=== PATIENT | female | born 1950 | race Caucasian/White ===

== ENCOUNTER → 2016-11-24 | Outpatient (CLI) | payer OTHER ==
[~2016-11-24] MED LIST: ACET-1138 PO; ANT125 PO; ASPEC81 PO; CALC500C70 PO; CLB200 PO; CLON1TAB3 PO; OPTIRAY 320 IV PRN; OXYSR10 PO; PARO1TAB29 PO; RXC5 PO; SIMV40TA2 PO; [UNRECOGNIZED DRUG - CODE] PO
[2016-11-24 16:15] LABS: ISTAT CREATININE 0.9 mg/dl (0.6-1.3); ISTAT IONIZED CALCIUM 1.26 mmol/l (1.12-1.32)
--- NOTE | 2016-11-24 16:20 | DIAGNOSTIC IMAGING REPORT ---
CT ABD/PELVIS IV AND ORAL CONT CLINICAL HISTORY: Right lower quadrant abdominal pain. Weight loss. COMPARISON STUDY: None. TECHNIQUE: Following the IV administration of 94 mL of Optiray-320, CT scan of the abdomen and pelvis was performed from the lung bases to the proximal femurs. Images are reviewed in the axial, sagittal, and coronal planes. IV contrast was administered without complication. CT DOSE: 988.58 mGycm FINDINGS: Lower chest: The heart is normal in size and configuration, without pericardial effusion. The lung bases and pleural spaces are clear. Liver: There is hepatic steatosis. No focal masses are visualized. The portal vein appears patent. Gallbladder: Surgically absent. Spleen: Normal in size and attenuation. Pancreas: Unremarkable. Adrenal glands: Unremarkable. Kidneys: There is symmetric renal cortical enhancement. The kidneys are normal in size without hydronephrosis. Bowel: There are no transition zones indicate bowel obstruction. By history the appendix is surgically absent. There is colonic diverticulosis. There is no acute peridiverticular inflammatory change. Peritoneum: There is no intraperitoneal free air or abdominal ascites. Vasculature: The abdominal aorta is normal in course and caliber. Adenopathy: Right common femoral lymph nodes are the upper limits of normal in size. Pelvic viscera: The bladder, and pelvic viscera are unremarkable. Skeletal structures: No destructive osseous lesions are seen. IMPRESSION: 1. No acute intra-abdominal findings 2. No evidence of bowel obstruction. No evidence of free air 3. Hepatic steatosis 4. Diverticulosis. No evidence of acute peridiverticular inflammatory change 5. Right common femoral lymph nodes at the upper limits of normal in size. Electronically signed by: Jonas Liu M.D. 11/24/2016 4:19 PM Dictated Date/Time: 11/24/2016 4:15 PM
== END | disposition home or self-care (01) ==
LOC: C.CTS 12:53
PROVIDERS: ATTEND Nurse Practitioner
DX: R10.813 Right lower quadrant abdominal tenderness (principal); K76.0 Fatty (change of) liver, not elsewhere classified; K57.90 Diverticulosis of intestine, part unspecified, without perforation or abscess without bleeding; R53.83 Other fatigue; R73.9 Hyperglycemia, unspecified; E03.9 Hypothyroidism, unspecified

== ENCOUNTER → 2016-11-24 | Outpatient (CLI) | payer OTHER ==
[~2016-11-24] MED LIST changes: -OPTIRAY 320 IV PRN
[2016-11-24 17:26] LABS: URINE APPEARANCE CLEAR (CLEAR); URINE BILIRUBIN NEG (NEG); URINE COLOR YELLOW; URINE NITRITE NEG (NEG); URINE SPECIFIC GRAVITY 1.016 (1.000-1.030); UROBILINOGEN NEG (NEG); ZZUR CULT IF INDIC CLEAN CATCH NO
[2016-11-24 17:31] LABS: MANUAL MICROSCOPIC REQUIRED? NO; REVIEW REQ? NO
[2016-11-24 17:36] LABS: BASO % 0.3 %; BASO ABS # 0.02 K/uL (0-0.2); COMPLETE YES; EOS % 2.4 %; HEMATOCRIT 45.6 % (37-47); IG% 0.2 %; LYMPH % 43.9 %; LYMPH ABS # 2.53 K/uL (1.2-3.4); MEAN CELL VOLUME 90.5 fL (80-100); MEAN CORPUSCULAR HEMOGLOBIN 30.6 pg (25-34); MEAN CORPUSCULAR HGB CONC 33.8 g/dl (32-36); MONO % 7.6 %; NEUT % 45.6 %; PLATELET COUNT 217 K/uL (130-400); RED BLOOD COUNT 5.04 M/uL (4.2-5.4); WHITE BLOOD COUNT 5.76 K/uL (4.8-10.8)
[2016-11-24 18:01] LABS: ALB/GLOB RATIO 1.2 (0.9-2); ALKALINE PHOSPHATASE 67 U/L (45-117); ALT/SGPT 27 U/L (12-78); AST/SGOT 19 U/L (15-37); BLOOD UREA NITROGEN 10 mg/dl (7-18); BUN/CREATININE RATIO 11.5 (10-20); CALCIUM 9.2 mg/dl (8.5-10.1); CARBON DIOXIDE 21 mmol/L (21-32); CHLORIDE 111 mmol/L (98-107); CREATININE 0.91 mg/dl (0.60-1.20); GLUCOSE 88 mg/dl (70-99); POTASSIUM 3.8 mmol/L (3.5-5.1); SODIUM 143 mmol/L (136-145)
[2016-11-25 05:42] LABS: ESTIMATED AVERAGE GLUCOSE 111 mg/dl; HA1C FLAG Normal (Normal)
== END | disposition home or self-care (01) ==
LOC: C.LABBFT 12:01
PROVIDERS: ATTEND Nurse Practitioner
DX: R53.83 Other fatigue (principal); R73.9 Hyperglycemia, unspecified; E03.9 Hypothyroidism, unspecified

== ENCOUNTER → 2016-12-02 | Outpatient (CLI) | payer OTHER ==
--- NOTE | 2016-12-02 09:30 | DIAGNOSTIC IMAGING REPORT ---
CT LUNG SCREENING, LOW DOSE WITH COMPUTER-AIDED DETECTION (CAD) CLINICAL HISTORY: LOW DOSE LUNG SCREENING PERSONAL HX TOBACCO USE COMPARISON STUDY: Abdominal CT dated 11/24/2016. Chest x-ray dated 08/26/2015. CT DOSE: 79.39 mGycm TECHNIQUE: Low-dose helical CT was acquired without intravenous contrast from lung apices to bases and reconstructed at 2.5 mm every 2 mm. CAD was utilized for this study. FINDINGS: Thyroid: Imaged portions of the thyroid gland are normal in appearance. Thoracic aorta: There is mild atherosclerotic calcification of the thoracic aorta, which is normal in caliber and demonstrates standard 3 vessel arch anatomy. Heart: The heart is normal in size and configuration, without pericardial effusion. There is moderate atherosclerotic calcification of the coronary arteries. The pulmonary trunk is normal in caliber. Lungs and pleural spaces: There is mild emphysematous change. No airspace consolidation or pleural effusion is identified. The trachea and central airways are clear. Scattered calcified granulomas are observed. There is a 3 mm pleural-based nodule in the right lower lobe seen on image #135. Mediastinum: There is no mediastinal lymphadenopathy. Adelina: Not well assessed without IV contrast. Axilla: Clear. Upper abdomen: Cholecystectomy clips are noted. There is cortical atrophy of the partially imaged kidneys. Skeletal structures: The skeletal structures are osteopenic. Arthritic change is noted in the shoulders and thoracic spine. There are no lytic or blastic osseous lesions. IMPRESSION: 1. Mild emphysema. 2. No airspace consolidation or pleural effusion is identified. 3. There is a 3 mm low suspicion pleural-based nodule in the right lower lobe. No additional pulmonary nodule is identified. See below. CAD FINDINGS: Overall Lung RADS Category: 2 Lung RADS Management Recommendation: Lung-RADS 2: Continue annual screening in 12 months. Lung RADS Follow Up Date: 2017-12-02 Lung RADS Nodule ID: 1 Nodule 1 Category: 2 Nodule 1 Status: Baseline Nodule 1 Description: Solid Nodule 1 Lesion ID: 1 Nodule 1 Slice Number: 96 Nodule 1 Volume (mm3): 29 Nodule 1 Major [place] mm: 4.9 Nodule 1 Minor [place] mm: 3.2 Electronically signed by: Nathan Garces M.D. 12/02/2016 9:29 AM Dictated Date/Time: 12/02/2016 9:22 AM
== END | disposition home or self-care (01) ==
LOC: C.CTS 08:44
PROVIDERS: ATTEND Nurse Practitioner
DX: R73.9 Hyperglycemia, unspecified (principal); E03.9 Hypothyroidism, unspecified; R53.83 Other fatigue; Z87.891 Personal history of nicotine dependence; R91.8 Other nonspecific abnormal finding of lung field

== ENCOUNTER → 2016-12-28 | Outpatient (CLI) | payer OTHER ==
--- NOTE | 2016-12-28 10:00 | DIAGNOSTIC IMAGING REPORT ---
LEFT ANKLE 3 VIEWS CLINICAL HISTORY: Left ankle pain. No history of trauma. FINDINGS: 3 views of the left ankle are obtained. No prior studies are available for comparison at the time of dictation. The skeletal structures are osteopenic. No fracture is seen. The ankle mortise is intact. There is a large plantar calcaneal enthesophyte. No ankle joint effusion is seen. There is nonspecific edema within Kager's fat pad with apparent thickening of the Achilles tendon. Mild degenerative spurring is seen along the dorsal aspect of the tarsal bones. Mild soft tissue sinus present around ankle. IMPRESSION: 1. Osteopenia with no acute bony abnormality seen in the left ankle. 2. There is nonspecific edema within Kager's fat pad as well as apparent thickening of the Achilles tendon. Correlate clinically for evidence of Achilles tendinopathy/paratenonitis. Electronically signed by: Nathan Garces M.D. 12/28/2016 9:58 AM Dictated Date/Time: 12/28/2016 9:56 AM
== END | disposition home or self-care (01) ==
LOC: C.RAD 09:35
PROVIDERS: ATTEND Nurse Practitioner
DX: M25.572 Pain in left ankle and joints of left foot (principal)

== ENCOUNTER → 2017-03-08 | Outpatient (CLI) | payer OTHER ==
[2017-03-08 18:03] LABS: ALB/GLOB RATIO 1.4 (0.9-2); ALKALINE PHOSPHATASE 63 U/L (45-117); ALT/SGPT 28 U/L (12-78); AST/SGOT 16 U/L (15-37); BLOOD UREA NITROGEN 19 mg/dl (7-18); BUN/CREATININE RATIO 19.5 (10-20); CALCIUM 8.8 mg/dl (8.5-10.1); CARBON DIOXIDE 25 mmol/L (21-32); CHLORIDE 109 mmol/L (98-107); CREATININE 0.98 mg/dl (0.60-1.20); GLUCOSE 87 mg/dl (70-99); POTASSIUM 3.7 mmol/L (3.5-5.1); SODIUM 142 mmol/L (136-145)
== END | disposition home or self-care (01) ==
LOC: C.LABBFT 10:54
PROVIDERS: ATTEND Nurse Practitioner
DX: E03.9 Hypothyroidism, unspecified (principal); I10 Essential (primary) hypertension

== ENCOUNTER → 2017-03-31 | Outpatient (CLI) | payer OTHER ==
--- NOTE | 2017-03-31 09:36 | DIAGNOSTIC IMAGING REPORT ---
RIGHT ANKLE MIN 3 VIEWS ROUTINE CLINICAL HISTORY: Right ankle pain status post trauma COMPARISON: None. DISCUSSION: No acute fractures or dislocations are visualized. There is small calcification within the plantar fascia. Degenerative changes are present within the midfoot. IMPRESSION: No fractures or dislocations identified. Electronically signed by: Jonas Liu M.D. 03/31/2017 9:34 AM Dictated Date/Time: 03/31/2017 9:34 AM
== END | disposition home or self-care (01) ==
LOC: C.RAD1850 03-30 16:17
PROVIDERS: ATTEND Nurse Practitioner
DX: S99.911A Unspecified injury of right ankle, initial encounter (principal); W19.XXXA Unspecified fall, initial encounter

== ENCOUNTER → 2017-06-27 | Outpatient (CLI) | payer OTHER ==
[2017-06-27 12:10] LABS: BASO % 0.5 %; BASO ABS # 0.03 K/uL (0-0.2); COMPLETE YES; HEMATOCRIT 43.2 % (37-47); IG% 0.2 %; LYMPH % 35.9 %; LYMPH ABS # 2.12 K/uL (1.2-3.4); MEAN CELL VOLUME 92.5 fL (80-100); MEAN CORPUSCULAR HEMOGLOBIN 31.7 pg (25-34); MEAN CORPUSCULAR HGB CONC 34.3 g/dl (32-36); MEAN PLATELET VOLUME 10.3 fL (7.4-10.4); MONO % 9.6 %; NEUT % 51.8 %; PLATELET COUNT 232 K/uL (130-400); RED BLOOD COUNT 4.67 M/uL (4.2-5.4); WHITE BLOOD COUNT 5.91 K/uL (4.8-10.8)
[2017-06-27 12:15] LABS: URINE APPEARANCE CLEAR (CLEAR); URINE BILIRUBIN NEG (NEG); URINE COLOR YELLOW; URINE EPITHELIAL CELL AUTO 20-30 /lpf (0-5); URINE NITRITE NEG (NEG); URINE PH 5.5 (4.5-7.5); URINE SPECIFIC GRAVITY 1.018 (1.000-1.030); UROBILINOGEN NEG (NEG); ZZUR CULT IF INDIC CLEAN CATCH NO
[2017-06-27 12:22] LABS: MANUAL MICROSCOPIC REQUIRED? NO; REVIEW REQ? NO
[2017-06-27 12:37] LABS: ALT/SGPT 22 U/L (12-78); AST/SGOT 13 U/L (15-37); BLOOD UREA NITROGEN 14 mg/dl (7-18); BUN/CREATININE RATIO 15.5 (10-20); CALCIUM 9.2 mg/dl (8.5-10.1); CARBON DIOXIDE 23 mmol/L (21-32); CHLORIDE 108 mmol/L (98-107); CREATININE 0.91 mg/dl (0.60-1.20); GLUCOSE 87 mg/dl (70-99); POTASSIUM 4.2 mmol/L (3.5-5.1); SODIUM 138 mmol/L (136-145)
[2017-06-27 12:48] LABS: ALB/GLOB RATIO 1.2 (0.9-2); ALKALINE PHOSPHATASE 70 U/L (45-117)
== END | disposition home or self-care (01) ==
LOC: C.LABBFT 10:22
PROVIDERS: ATTEND Internal Medicine
DX: R61 Generalized hyperhidrosis (principal); R63.4 Abnormal weight loss; R39.9 Unspecified symptoms and signs involving the genitourinary system

== ENCOUNTER → 2017-08-11 | Outpatient (CLI) | payer OTHER ==
--- NOTE | 2017-08-14 07:50 | MAMMOGRAPHY REPORT ---
BILATERAL DIGITAL SCREENING MAMMOGRAM TOMOSYNTHESIS WITH CAD: 08/11/2017 CLINICAL HISTORY: Routine screening examination. TECHNIQUE: Breast tomosynthesis in addition to standard 2D mammography was performed. Current study was also evaluated with a Computer Aided Detection (CAD) system. COMPARISON: Comparison is made to exams dated: 12/22/2014 mammogram, 12/18/2013 mammogram, 03/10/2010 mohit mogram, 10/25/2012 mammogram - [facility], 10/09/2007, and 05/19/1999 mammogram - [facility]. BREAST COMPOSITION: The tissue of both breasts is almost entirely fatty. FINDINGS: No developing mass, architectural distortion or cluster of suspicious microcalcifications is seen in either breast. IMPRESSION: ACR BI-RADS CATEGORY 2: BENIGN There is no mammographic evidence of malignancy. A 1 year screening mammogram is recommended. The pa tient will receive written notification of the results. Approximately 10% of breast cancers are not detected with mammography. A negative mammographic report should not delay biopsy if a clinically suggestive mass is present. Chani Clay M.D. ay/:08/12/2017 08:11:37 [employer] Ar[employer]anger: Rhonda SAVAGE(R)(M), [facility] letter sent: Normal 1/2 BI-RADS Code: ACR BI-RADS Category 2: Benign
== END | disposition home or self-care (01) ==
LOC: C.MAMM 10:36
PROVIDERS: ATTEND Nurse Practitioner
DX: Z12.31 Encounter for screening mammogram for malignant neoplasm of breast (principal)

== ENCOUNTER → 2017-08-28 | Outpatient (CLI) | payer OTHER ==
[2017-08-28 12:28] LABS: BLOOD UREA NITROGEN 13 mg/dl (7-18); BUN/CREATININE RATIO 13.2 (10-20); CALCIUM 9.2 mg/dl (8.5-10.1); CARBON DIOXIDE 27 mmol/L (21-32); CHLORIDE 105 mmol/L (98-107); CHOLESTEROL 288 mg/dl (0-200); CREATININE 0.95 mg/dl (0.60-1.20); GLUCOSE 92 mg/dl (70-99); POTASSIUM 3.9 mmol/L (3.5-5.1); SODIUM 138 mmol/L (136-145); TRIGLYCERIDES 81 mg/dl (0-150); VERY LOW DENSITY LIPOPROT CALC 16 mg/dl
[2017-08-28 12:39] LABS: CHOLESTEROL/HDL RATIO 5.1; HDL CHOLESTEROL 57 mg/dl; LDL CHOLESTEROL CALCULATED 215 mg/dl
== END | disposition home or self-care (01) ==
LOC: C.LABBFT 08:41
PROVIDERS: ATTEND Nurse Practitioner
DX: E78.5 Hyperlipidemia, unspecified (principal); E03.9 Hypothyroidism, unspecified; E55.9 Vitamin D deficiency, unspecified

== ENCOUNTER → 2017-09-12 | Outpatient (CLI) | payer OTHER ==
--- NOTE | 2017-09-12 10:33 | DIAGNOSTIC IMAGING REPORT ---
PELVIS/BILATERAL HIP 2 VIEWS CLINICAL HISTORY: BILATERAL HIP PAIN pain COMPARISON STUDY: None FINDINGS: Mild degenerative changes of the hips bilaterally. No acute bony abnormality. Mild degenerative change sacroiliac joints. No evidence of bony ankylosis. IMPRESSION: Mild degenerative change of the hips and sacroiliac joints. No acute process. The above report was generated using voice recognition software. It may contain grammatical, syntax or spelling errors. Electronically signed by: Miguel Clayton M.D. 09/12/2017 10:32 AM Dictated Date/Time: 09/12/2017 10:31 AM
--- NOTE | 2017-09-12 10:35 | DIAGNOSTIC IMAGING REPORT ---
LEFT SHOULDER 3 VIEWS HISTORY: CHRONIC PAIN OF BOTH SHOULDERS COMPARISON: None. FINDINGS: There is no fracture or dislocation. Soft tissues are unremarkable. The left clavicle is intact. There is moderate AC joint arthrosis. There is mild cartilage space narrowing within the glenohumeral joint consistent with mild degenerative change. IMPRESSION: 1. No fracture or dislocation within the left shoulder. 2. Mild to moderate degenerative changes within the left shoulder as described above Electronically signed by: Alex Terrell M.D. 09/12/2017 10:34 AM Dictated Date/Time: 09/12/2017 10:32 AM
--- NOTE | 2017-09-12 10:40 | DIAGNOSTIC IMAGING REPORT ---
RIGHT SHOULDER 3 VIEWS CLINICAL HISTORY: Chronic right shoulder pain. FINDINGS: 3 views of the right shoulder are compared to study dated 04/29/2015. The skeletal structures are osteopenic. No fracture or dislocation is seen. Productive degenerative change is noted at the acromioclavicular joint. The glenohumeral articulation is preserved. Mild arthritic change and sclerosis is seen in the greater tuberosity of the humeral head. The overlying soft tissues are within normal limits. The partially imaged right upper lobe lung parenchyma appears clear. IMPRESSION: 1. No acute bony abnormality is seen in the right shoulder. 2. Osteopenia and mild arthritic change as above. This is similar in appearance to the 2014 examination. Electronically signed by: Nathan Garces M.D. 09/12/2017 10:38 AM Dictated Date/Time: 09/12/2017 10:36 AM
== END | disposition home or self-care (01) ==
LOC: C.RAD1850 09:53
PROVIDERS: ATTEND Nurse Practitioner
DX: M25.551 Pain in right hip (principal); M25.552 Pain in left hip; M25.512 Pain in left shoulder; M85.811 Other specified disorders of bone density and structure, right shoulder

== ENCOUNTER → 2017-09-20 | Outpatient (CLI) | payer OTHER ==
[~2017-09-20] MED LIST changes: +ACET-1693 PO; -ASPEC81 PO; +ASPI-320 PO; +CHOL100010 PO; -CLON1TAB3 PO; +CLON1TAB4 PO; +DICL-201 PO; +DOXY100C76 PO; +HYDR25CA PO; +LEVO50TA6 PO; +NAPR1TAB9 PO; +OXYC-57 PO; +VITAMIN D PO
--- NOTE | 2017-09-20 12:25 | DIAGNOSTIC IMAGING REPORT ---
R UPPER EXT JOINT WITHOUT CLINICAL HISTORY: RT SHOULDER ARTHRITIS pain TECHNIQUE: MRI multi axial acquisition COMPARISON STUDY: None FINDINGS: Rather significant degenerative change of the glenohumeral joint. Prominent degenerative change acromioclavicular joint with mild hypertrophic change creating mild impingement upon the supraspinatus musculotendinous junction. Biceps tendon is intact within the bicipital groove. Moderate hypertrophic change anterior margin of the lateral humeral head combined with hypertrophic change acromioclavicular joint. This creates impingement of the supraspinatus tendon with a full-thickness tear at its anterior and/or leading-edge with a partial thickness tear and superimposed tendinopathy of the mid to posterior aspect of the supraspinatus. Small joint effusion. Small amount of fluid within the subdeltoid bursa. Moderate generalized degenerative change of the anterior margin of the glenoid labrum. The infraspinatus tendon is unremarkable. Moderate tendinopathy with a partial thickness tear of the subscapularis tendon. IMPRESSION: 1. Generalized degenerative changes of glenohumeral and acromioclavicular joints. 2. Tendinopathy primarily of the supraspinatus and to a lesser extent subscapularis. 3. Focal full-thickness tear anterior margin of the supraspinatus with deterioration and superimposed tendinopathy of the mid to posterior aspect of the supraspinatus. 4. Mild subscapularis tendinopathy with a small partial thickness tear at its superior margin. 5. Generalized deterioration of the glenoid labrum with considerable substance loss at its anterior margin. The above report was generated using voice recognition software. It may contain grammatical, syntax or spelling errors. Electronically signed by: Miguel Clayton M.D. 09/20/2017 12:23 PM Dictated Date/Time: 09/20/2017 12:11 PM
== END | disposition home or self-care (01) ==
LOC: C.MRI 10:35
PROVIDERS: ATTEND Orthopaedic Surgery
DX: M19.011 Primary osteoarthritis, right shoulder (principal); M75.81 Other shoulder lesions, right shoulder; M75.101 Unspecified rotator cuff tear or rupture of right shoulder, not specified as traumatic

== ENCOUNTER → 2017-10-06 | Outpatient (CLI) | payer OTHER ==
[~2017-10-06] MED LIST changes: -ACET-1138 PO; -ACET-1693 PO; -ANT125 PO; -ASPI-320 PO; -CALC500C70 PO; -CHOL100010 PO; -CLB200 PO; -CLON1TAB4 PO; -DOXY100C76 PO; -NAPR1TAB9 PO; -OXYC-57 PO; -OXYSR10 PO; -RXC5 PO; -[UNRECOGNIZED DRUG - CODE] PO
[2017-10-06 12:30] LABS: HEMATOCRIT 40.2 % (37-47); HEMOGLOBIN 13.6 g/dL (12.0-16.0); MEAN CELL VOLUME 93.5 fL (80-100); MEAN CORPUSCULAR HEMOGLOBIN 31.6 pg (25-34); MEAN CORPUSCULAR HGB CONC 33.8 g/dl (32-36); MEAN PLATELET VOLUME 10.1 fL (7.4-10.4); PLATELET COUNT 213 K/uL (130-400); RED CELL DISTRIBUTION WIDTH SD 44.6 fL (36.4-46.3); WHITE BLOOD COUNT 5.79 K/uL (4.8-10.8)
--- NOTE | 2017-10-06 12:55 | DIAGNOSTIC IMAGING REPORT ---
CHEST 2 VIEWS ROUTINE HISTORY: Preop. COMPARISON: Chest CT 12/02/2016. FINDINGS: The lungs are clear. Cardiac silhouette is normal in size. No pleural effusions. No pneumothorax. IMPRESSION: No acute process. Electronically signed by: Alex Terrell M.D. 10/06/2017 12:54 PM Dictated Date/Time: 10/06/2017 12:51 PM
== END | disposition home or self-care (01) ==
LOC: C.RAD 11:32
PROVIDERS: ATTEND Physician Assistant
DX: Z01.812 Encounter for preprocedural laboratory examination (principal); Z01.810 Encounter for preprocedural cardiovascular examination; Z01.811 Encounter for preprocedural respiratory examination; M75.100 Unspecified rotator cuff tear or rupture of unspecified shoulder, not specified as traumatic

== ENCOUNTER → 2017-10-16 | Day surgery (SDC) | payer OTHER ==
[2017-09-26 08:20] VITALS: Ht 170.2 cm; Wt 100.9 kg
[~2017-10-16] VITALS: Ht 170.2 cm; Wt 100.9 kg
[~2017-10-16] MED LIST changes: +ATROPINE SULFATE 0.1 MG/ML 5ML SYR IV PRN; +CEFAZOLIN 2000MG IV PUSH 10 ML IV SCH; +DEXAMETHASONE SOD INJ 4 MG/ML VIAL ONE; +EpHEDrine SULFATE INJ 50 MG/ML AMP IV PRN; +EpINEphrine HCL INJ 1 MG/ML 5ML SYRINGE ONE; +FENTANYL CITRATE INJ 50 MCG/1 ML 2 ML VIAL IV PRN; +FENTANYL CITRATE INJ 50 MCG/1 ML 2 ML VIAL ONE; +GLYCOPYRROLATE INJ 0.2 MG/ML VIAL ONE; +LACTATED RINGER'S 1000ML 1,000 ML IV SCH; +LIDOCAINE HCL 2% 2 ML VIAL (20MG/ML) ONE; +METOCLOPRAMIDE HCL INJ 5 MG/ML 2 ML VIAL IV PRN; +MIDAZOLAM HCL 1 MG/ML 2ML VIAL ONE; +MoRPHine SULFATE 2 MG/ML CARP IV PRN; +MoRPHine SULFATE 4 MG/ML 1 ML CARP\\VIAL IV PRN; +NEOSTIGMINE METHYLSULFATE 5 MG/5 ML SYR ONE; +ONDANSETRON INJ 2 MG/ML 2 ML VIAL IV PRN; +ONDANSETRON INJ 2 MG/ML 2 ML VIAL ONE; +OXYCODONE/ACETAMINOPHEN 5-325 TAB PO PRN; +PROPOFOL IV EMULSION 10 MG/ML 20 ML VIAL IV ONE; +ROPIVACAINE 0.5% 5 MG/ML 30 ML VIAL ONE; +SODIUM CHLORIDE 0.9% 1000ML 1,000 ML IV SCH
--- NOTE | 2017-10-16 06:49 | History & Physical Bridge - SC ---
H&P Re-Evaluation Bridge Note: I have examined the patient, reviewed the History & Physical and in the interval since the performance of the History & Physical I have noted the following changes of clinical significance: No changes noted
--- NOTE | 2017-10-16 09:30 | [facility] Post Operative Brief Note ---
Immediate Operative Summary Operative Date Oct 16, 2017. Pre-Operative Diagnosis Right Shoulder Rotator Cuff Tear, AC Joint Arthritis, subacromial spur Post-Operative Diagnosis same Procedure(s) Performed Right Shoulder Arthroscopy, Debridement, Distal Clavicle Excision, Subacromial Decompression Surgeon Dr. Jose Angel Bansal Prototype Engineer Surgeon(s) Jonas Abraham PA-C, [employer]Student Estimated Blood Loss 10 ml Findings Consistent with Post-Op Diagnosis Specimens none Drains None Anesthesia Type General Regional Complication(s) none Disposition Accompanied Pt To Recover: no Disposition: Recovery Room / PACU
--- NOTE | 2017-10-16 09:47 | [facility] Operative Report ---
Operative Report Operative Date Oct 16, 2017. Pre-Operative Diagnosis Right Shoulder Rotator Cuff Tear, AC Joint Arthritis, subacromial spur Post-Operative Diagnosis same Procedure(s) Performed Right Shoulder Arthroscopy, Debridement, Distal Clavicle Excision, Subacromial Decompression Surgeon Dr. Jose Angel Bansal Technical Support Director Surgeon(s) Jonas Abraham PA-C, [employer]Student Estimated Blood Loss 10 ml Findings Severe AC joint arthritis Specimens none Complication(s) None Disposition Recovery Room / PACU I attest to the content of the Intraoperative Record and any orders documented therein. Any exceptions are noted below.
--- NOTE | 2017-10-16 10:00 | Discharge Instructions ---
Discharge Instructions Date of Service Oct 16, 2017. Admission Reason for Admission: Right Shoulder Rotator Cuff Tear, Ac Joint Arthrit Discharge Discharge Diagnosis / Problem: Right shoulder rotator cuff tear, AC joint arthritis Discharge Goals Goal(s): Decrease discomfort, Improve function, Increase independence Activity Recommendations Activity Limitations: as noted below Lifting Limitations: until after follow-up appointment Exercise/Sports Limitations: until after follow-up appointment May Resume Sexual Activity: after two weeks Shower/Bathe: tomorrow, keep incision dry Driving or Machine Use: No driving until cleared by orthopedic surgeon Weightbearing Status: Right weightbearing (No lifting greater than 2-3 lbs until directed otherwise) . Instructions / Follow-Up Instructions / Follow-Up Post-operative Instructions Dear Patient and Family/Friends, Before you are discharged from the hospital, it is important to know what to expect when you get home after surgery. To that end, we have created this sheet of discharge instructions which covers many commonly asked questions. Make sure you go through this sheet in its entirety with your nurse before you are discharged. Please note that we will go over the specifics of your surgery and recovery when you return for your first post-operative visit. Sincerely, Dr. Dahl Pain Expect to be in a fair amount of pain after surgery. Remember, our goal is not to eliminate your pain, but to make it tolerable. It is a good idea to stay ahead of your pain by taking the medications you were prescribed once you get home. Typically, the pain starts improving 3-7 days after surgery. You should start weaning off the narcotic pain medication (oxycodone, hydrocodone, hydromorphone, morphine) as soon as your pain improves. Please call our office if your pain is not adequately controlled. Ice Ice your operative site at least 5 times a day for 15-30 minutes at a time. Make sure you have a thin cloth between the ice or cooling unit and your skin to prevent art bite. This is especially important if you received a nerve block. Continue icing your operative site for the first 5-7 days after surgery , then as needed. Diet/Nausea/Vomiting Start by drinking clear liquids and eating crackers. If you can tolerate this, then you may resume your normal diet. If you feel nauseated or vomit, take Zofran/ondansetron (if prescribed). Please call our office if you have intractable nausea or vomiting, or, if after hours, you may go to the Emergency Room for help. Constipation Constipation is a common side effect of narcotic pain medication. If you have not had a bowel movement within 2 days after surgery, we recommend purchasing an over the counter laxative such as Milk of Magnesia, Dulcolax, or Miralax from a local pharmacy, and taking it as instructed. Call our clinic if any questions. Slings and Braces If you were placed in a sling or brace, it must be worn at all times, including sleep. You may remove your sling or brace for physical therapy, home exercises , and showering. The length of time you will be in your brace and range of motion restrictions depends on what surgery you had; these details will be reviewed at your first post-operative appointment. Nerve block The anesthesia team sometimes places a nerve block to help with post-operative pain control. This results in significant numbness and inability to move the extremity. The nerve block usually wears off in 8-12 hours, but sometimes can last up to 24 hours. Please call our office if you are still unable to move your extremity after 24 hours, unless you received a pain pump to take home. Nerve blocks typically wear off quickly, so start taking pain medication as soon as you start feeling soreness near your surgical site. Weight bearing and Range of Motion. Do not bear any weight through your operative extremity immediately after surgery. If you had upper extremity surgery, do not lift anything with that arm. If you are in a knee brace, keep it locked in place until your follow-up. We will discuss your weight bearing, range of motion, and lifting restrictions in detail at your first post-operative appointment. Continuous Passive Motion (CPM) Machine If you were prescribed a CPM machine, it will start after your first post- operative appointment, at which time we will give you instructions on the range of motion settings and duration of treatment Physical therapy You will be given a prescription for physical therapy or occupational therapy at your first post-operative appointment. Typically, patients start therapy within 1 week of surgery Wound care and showering We will inspect your wound at your first post-operative visit, and may do a dressing change at that time. Most patients will be in a water-proof dressing that is removed 14 days after surgery. It is normal to see some dried blood on the dressing. Do not remove your dressing, paper strips or sutures yourself unless you are given permission. Showering is allowed the day after surgery. Do not scrub or remove any dressings. The wound should not be submerged underwater (i.e. in a bathtub or pool) until 4 weeks after surgery BHAKTI stockings If you were given white stockings, these are to be worn at all times except to shower (on both legs) for the first 2 weeks after surgery. Driving You may not drive while taking narcotic pain medication or while in a cast, splint, sling or brace. You, the patient, need to make the final determination about when you are safe to drive, however, the earliest you may consider driving after surgery is below: Hand/Wrist/Elbow Surgery: 3 days Shoulder Surgery: 2 weeks Hip,/Knee/Ankle Surgery: 4 weeks Fracture repair: 6 weeks Return to Work Your return to work depends on what surgery was done and what type of work you do. Please bring any paperwork your employer needs completed to your first post -operative visit. Also, bring a description of your job duties, as this helps us to understand what risks you may face at work. Travel Avoid long distance travel (greater than 1 hour) in airplanes and cars for the first 6 weeks after surgery. If you must travel, you need to have a Doppler ultrasound done before you travel to rule out a blood clot in your legs. Follow-up You should have a follow-up appointment already scheduled 1-2 days after surgery. If not, please contact our office to make this appointment before you leave the hospital. When to call the office It is normal to have swelling and bruising in the limb that was operated on. This will improve with time. It is also normal to have fevers for the first 2 days after surgery. Reasons you should call your doctor include: Uncontrolled pain; Nausea, vomiting, or constipation that does not improve with medication; Fevers over 101.5, chills, sweats; Drainage or bleeding from the wound; Foul odor; Spreading areas of redness; Any other concerns Current Hospital Diet Patient's current hospital diet: Discharge Diet Recommended Diet: Regular Diet Procedures Procedures Performed: Right Shoulder Arthroscopy, Debridement, Distal clavicle excision, Subacromial Decompression Pending Studies Studies pending at discharge: no Laboratory Results Lipid Panel Test 08/28/17 09:10 Range/Units Triglycerides Level 81 0-150 mg/dl Cholesterol Level 288 H 0-200 mg/dl HDL Cholesterol 57 mg/dl Cholesterol/HDL Ratio 5.1 LDL Cholesterol, Calculated 215 mg/dl Medical Emergencies . Who to Call and When: Medical Emergencies: If at any time you feel your situation is an emergency, please call 911 immediately. . Non-Emergent Contact Non-Emergency issues call your: Primary Care Provider Call Non-Emergent contact if: you have a fever, temperature is above 101.5, your pain is not controlled, your pain is worsening, wound has increased drainage, you have any medication questions . "Provider Documentation" section prepared by Jonas Abraham. . VTE Core Measure Inpt VTE Proph given/why not?: Other Anticoagulation (Aspirin EC 81 mg), T.ESarah Hinojosa [place] Drug Monitoring Program Search Results: patient reviewed within database, no issues identified, see additional documentation
--- NOTE | 2017-10-16 10:33 | OPERATIVE REPORT ---
DATE OF OPERATION: 10/16/2017 PREOPERATIVE DIAGNOSES: Right shoulder acromioclavicular joint arthritis, subacromial spur, and partial thickness rotator cuff tear. POSTOPERATIVE DIAGNOSES: Same. OPERATIONS performed. PROCEDURE: 1. Right shoulder arthroscopic distal clavicle excision. 2. Right shoulder arthroscopic major debridement. 3. Right shoulder subacromial decompression. SURGEON: Dr. Prabhjot Dahl. PRINTED CIRCUIT BOARDS SOLDER LEVELER SURGEON: Jonas Abraham PA-C. ESTIMATED BLOOD LOSS: 10 mL. SPECIMENS: None. COMPLICATIONS: None. IMPLANTS: None. INDICATIONS: Ms. Jeff is a 67-year-old female who has had pain in the right shoulder, this has been refractory to conservative management. Her physical exam is notable for tenderness over the AC joint as well as difficulty with overhead activities and positive Neer and Younger test. MRI was obtained as well as x-rays showing AC joint arthritis with underlying bone edema. She has a partial thickness tearing of the rotator cuff tear. I had a long discussion with her about the risks and benefits of surgery, alternatives to surgery and expected outcomes. After reviewing all these, she elected to proceed with surgery. All questions were answered. Informed consent was signed. OPERATIVE FINDINGS: 1. The subscapularis showed no tears. 2. The biceps tendon was normal. 3. The supraspinatus and infraspinatus showed some articular-sided fraying, but no full thickness tears. 4. Axillary pouch showed no loose bodies. 5. The glenoid and humeral head showed diffuse grade 1 chondromalacia. 6. The labrum showed some degenerative fraying along its anterior and superior margins consistent with a type 1 SLAP tear. The labral fraying was debrided as was the articular side of the cuff tear. Subacromial bursectomy was performed. The subacromial spur was resected with the bur. Approximately 8 mm of distal clavicle was excised with the bur. DESCRIPTION OF OPERATION: The patient was identified in the preoperative holding area where her surgical site was marked. She was given interscalene block by anesthesia and brought back to the main operating room where she was placed in the operating room table and general anesthesia was administered. She was moved in the lateral decubitus position. All bony prominences were padded. Perioperative antibiotics were administered. She was prepped and draped in the normal sterile fashion. Prior to incision, a multidisciplinary timeout was called. All in the room were in agreement. We began by placing the arm in 10 pounds of longitudinal traction. A posterior-viewing portal was created followed by an anterior-working portal under direct visualization. We then performed a diagnostic arthroscopy revealing the above findings. Once her diagnostic arthroscopy was complete, we introduced the shaver, which was used to debride the fraying of her glenoid labrum along its anterior and superior margins. The biceps tendon had a normal appearance and therefore was left in situ. We then moved above the biceps tendon and gently debrided the frayed margins of the supra and infraspinatus. Once this was complete, the arthroscope was moved in the subacromial space. Significant amount of subacromial bursitis was encountered which was resected with the shaver. She had a large subacromial spur that was exposed with electrocautery. This was smoothed with a bur converting her from a type a type 1 acromion. We then exposed the AC joint with a shaver and electrocautery. Coming through an anterior portal, we then used a bur to resect 8 mm of the distal clavicle, taking great care to expose the superior and posterior aspects to ensure we had a good 10 mm gap between the distal clavicle and the acromion. We thoroughly palpated the rotator cuff from both the lateral and the posterior portals inspecting it from multiple views. There was no bursal-sided tearing. Therefore, I elected to not take down her rotator cuff and as I felt that the potential benefits from doing this were outweighed by the risks of nonhealing shoulder stiffness and unsatisfactory clinical outcome. Therefore, our arthroscopic instruments were removed. Of note, we had marked the area of the rotator cuff tear on the articular side with the PDS suture and again there was no bursal-sided tearing in this location. The patient's portals were closed with 3-0 Monocryl sutures. The 2 x 2 and Tegaderm dressings were applied. She was placed into a simple sling. She was awoken from anesthesia and transferred to the recovery room in stable condition. POSTOPERATIVE COURSE: The patient will be discharged home from the recovery room. She will start early range of motion exercises following the shoulder arthroscopy, debridement protocol. She will follow up in my clinic tomorrow to start physical therapy. Aspirin for DVT prophylaxis. I attest to the content of the Intraoperative Record and any orders documented therein. Any exception s are noted below.
[2017-10-16 11:42] VITALS: TEMP 36.4
[2017-10-16 12:12] VITALS: BP 128/68; PULSE 72; O2SAT 95
--- NOTE | 2017-10-16 12:17 | Anesthesia Progress Nt - [facility] ---
Anesthesia Post Op Note Date & Time Oct 16, 2017 at 12:16 Vital Signs Pain Intensity: 0 Vital Signs Past 12 Hours Date Time Temp Pulse Resp B/P (MAP) Pulse Ox O2 Delivery O2 Flow Rate FiO2 10/16/17 12:12 72 16 128/68 (88) 95 Room Air 10/16/17 11:42 36.4 70 18 107/65 (79) 93 Room Air 10/16/17 11:30 107/79 10/16/17 11:28 70 21 92 10/16/17 11:28 70 21 10/16/17 11:27 36.4 67 15 95/77 92 Room Air 10/16/17 11:25 95/77 10/16/17 11:23 74 21 91 10/16/17 11:23 73 21 10/16/17 11:20 119/66 10/16/17 11:18 59 19 10/16/17 11:18 58 19 96 10/16/17 11:15 113/60 10/16/17 11:13 60 18 96 10/16/17 11:13 61 18 10/16/17 11:11 125/74 10/16/17 11:08 59 15 96 10/16/17 11:08 59 15 10/16/17 11:06 132/72 10/16/17 11:03 70 19 10/16/17 11:03 71 19 88 10/16/17 11:01 129/67 10/16/17 10:58 72 23 89 10/16/17 10:58 73 23 10/16/17 10:56 136/53 10/16/17 10:53 70 23 134/67 92 10/16/17 10:53 70 23 10/16/17 10:48 62 20 10/16/17 10:48 62 20 96 10/16/17 10:43 63 20 10/16/17 10:43 63 20 96 10/16/17 10:38 62 19 97 10/16/17 10:38 61 19 10/16/17 10:33 72 79 10/16/17 10:33 72 10/16/17 10:23 65 25 87 10/16/17 10:23 64 25 10/16/17 10:21 131/52 10/16/17 10:18 63 15 10/16/17 10:18 63 15 91 10/16/17 10:16 93/64 10/16/17 10:13 60 22 10/16/17 10:13 60 22 97 10/16/17 10:11 94/49 10/16/17 10:08 61 22 10/16/17 10:08 61 22 97 10/16/17 10:06 134/53 10/16/17 10:03 61 21 96 10/16/17 10:03 61 21 10/16/17 10:01 153/74 10/16/17 09:58 65 22 94 10/16/17 09:58 65 22 10/16/17 09:56 144/81 10/16/17 09:53 69 15 10/16/17 09:53 70 15 93 10/16/17 09:51 151/65 10/16/17 09:48 36.0 79 24 163/97 95 Mask 10 10/16/17 08:00 0 10/16/17 07:55 57 10/16/17 07:55 61 22 141/67 99 10/16/17 07:51 134/74 10/16/17 07:50 62 28 10/16/17 07:46 127/75 10/16/17 07:45 65 30 99 10/16/17 07:45 66 10/16/17 07:40 62 26 128/83 10/16/17 07:35 64 10/16/17 07:35 64 27 139/84 99 10/16/17 07:30 66 10/16/17 07:30 65 22 129/79 99 10/16/17 07:26 129/82 10/16/17 07:25 64 10/16/17 07:25 65 34 99 10/16/17 07:20 59 13 128/83 99 10/16/17 07:20 60 10/16/17 07:18 147/76 10/16/17 07:16 158/80 10/16/17 07:15 62 10/16/17 07:15 60 35 99 10/16/17 06:30 125/73 10/16/17 06:21 36.7 62 20 125/73 (90) 96 Room Air Notes Mental Status: alert / awake / arousable, participated in evaluation Pt Amnestic to Procedure: Yes Nausea / Vomiting: adequately controlled Pain: adequately controlled Airway Patency, RR, SpO2: stable & adequate BP & HR: stable & adequate Hydration State: stable & adequate Anesthetic Complications: no major complications apparent VSS. O2 Sats improved after incentive spirometry. Pt otherwise doing well.
== END | disposition home or self-care (01) ==
LOC: X.SURG 06:11
PROVIDERS: ATTEND Orthopaedic Surgery
DX: M19.011 Primary osteoarthritis, right shoulder (principal); M75.101 Unspecified rotator cuff tear or rupture of right shoulder, not specified as traumatic; J44.9 Chronic obstructive pulmonary disease, unspecified; I25.10 Atherosclerotic heart disease of native coronary artery without angina pectoris; K21.9 Gastro-esophageal reflux disease without esophagitis; E03.9 Hypothyroidism, unspecified; E78.5 Hyperlipidemia, unspecified; E66.9 Obesity, unspecified; K44.9 Diaphragmatic hernia without obstruction or gangrene; I25.2 Old myocardial infarction; Z90.49 Acquired absence of other specified parts of digestive tract; Z96.653 Presence of artificial knee joint, bilateral; Z98.41 Cataract extraction status, right eye; Z98.42 Cataract extraction status, left eye; Z87.891 Personal history of nicotine dependence; Z82.49 Family history of ischemic heart disease and other diseases of the circulatory system; Z82.3 Family history of stroke; Z83.3 Family history of diabetes mellitus

== ENCOUNTER → 2017-12-04 | Outpatient (CLI) | payer OTHER ==
[~2017-12-04] MED LIST changes: -ATROPINE SULFATE 0.1 MG/ML 5ML SYR IV PRN; -CEFAZOLIN 2000MG IV PUSH 10 ML IV SCH; -DEXAMETHASONE SOD INJ 4 MG/ML VIAL ONE; -EpHEDrine SULFATE INJ 50 MG/ML AMP IV PRN; -EpINEphrine HCL INJ 1 MG/ML 5ML SYRINGE ONE; -FENTANYL CITRATE INJ 50 MCG/1 ML 2 ML VIAL IV PRN; -FENTANYL CITRATE INJ 50 MCG/1 ML 2 ML VIAL ONE; -GLYCOPYRROLATE INJ 0.2 MG/ML VIAL ONE; -LACTATED RINGER'S 1000ML 1,000 ML IV SCH; -LIDOCAINE HCL 2% 2 ML VIAL (20MG/ML) ONE; -METOCLOPRAMIDE HCL INJ 5 MG/ML 2 ML VIAL IV PRN; -MIDAZOLAM HCL 1 MG/ML 2ML VIAL ONE; -MoRPHine SULFATE 2 MG/ML CARP IV PRN; -MoRPHine SULFATE 4 MG/ML 1 ML CARP\\VIAL IV PRN; -NEOSTIGMINE METHYLSULFATE 5 MG/5 ML SYR ONE; -ONDANSETRON INJ 2 MG/ML 2 ML VIAL IV PRN; -ONDANSETRON INJ 2 MG/ML 2 ML VIAL ONE; -OXYCODONE/ACETAMINOPHEN 5-325 TAB PO PRN; -PROPOFOL IV EMULSION 10 MG/ML 20 ML VIAL IV ONE; -ROPIVACAINE 0.5% 5 MG/ML 30 ML VIAL ONE; -SODIUM CHLORIDE 0.9% 1000ML 1,000 ML IV SCH
--- NOTE | 2017-12-04 12:41 | DIAGNOSTIC IMAGING REPORT ---
LUNG SCREENING, LOW DOSE CLINICAL HISTORY: Lung nodule Pulmonary nodule COMPARISON STUDY: 12/02/2016 CT DOSE: 85.93 mGy.cm TECHNIQUE: Low-dose helical CT was acquired without intravenous contrast from lung apices to bases and reconstructed at 2.5 mm every 2 mm. CAD was utilized for this study. A dose lowering technique was utilized adhering to the principles of ALARA. FINDINGS: Pleural-based nodule previously described has resolved. Lungs this time are considered clear. No significant mediastinal or hilar adenopathy. IMPRESSION: Study is retroverted to a normal appearance. No significant pulmonary nodularity. CAD FINDINGS: Overall Lung RADS Category: Lung RADS Management Recommendation: Continue annual lung cancer screening. Lung RADS Follow Up Date: Lung RADS Nodule ID: The above report was generated using voice recognition software. It may contain grammatical, syntax or spelling errors. Electronically signed by: Miguel Clayton M.D. 12/04/2017 12:40 PM Dictated Date/Time: 12/04/2017 12:33 PM
== END | disposition home or self-care (01) ==
LOC: C.CTS 09:52
PROVIDERS: ATTEND Nurse Practitioner
DX: Z87.891 Personal history of nicotine dependence (principal); Z12.2 Encounter for screening for malignant neoplasm of respiratory organs

== ENCOUNTER 2017-12-24 07:05 | Emergency (ER) | payer OTHER ==
[~2017-12-24] VITALS: Ht 170.2 cm; Wt 102.6 kg
[2017-12-24 07:11] VITALS: TEMP 36.6; Ht 170.2 cm; Wt 102.6 kg
[2017-12-24] MEDS ORDERED: OXYCODONE/ACETAMINOPHEN 5-325 TAB PO ONE (07:30)
[2017-12-24] MEDS ORDERED: NAPR1TAB9 PO (07:56)
[2017-12-24] MEDS ORDERED: ACET-1693 PO (07:56)
--- NOTE | 2017-12-24 07:59 | DIAGNOSTIC IMAGING REPORT ---
R SHOULDER MIN 2 VIEWS ROUTINE CLINICAL HISTORY: Right shoulder pain. Trauma. COMPARISON: 09/12/2017 DISCUSSION: No acute fractures or dislocations are visualized. There is a distal clavicular deformity which is likely postsurgical. Please correlate with any history of interval surgery. Mild acromial irregularity, is also likely postsurgical IMPRESSION: 1. No acute fractures or dislocations 2. Tapering of the distal clavicle, a finding which likely relates to interval surgery. Correlation with surgical history is recommended. Electronically signed by: Jonas Liu M.D. 12/24/2017 7:58 AM Dictated Date/Time: 12/24/2017 7:57 AM
[2017-12-24] MEDS ORDERED: OXYC-57 PO (08:20)
[2017-12-24 08:28] VITALS: BP 138/86; PULSE 76; O2SAT 97
--- NOTE | 2017-12-24 17:17 | EMERGENCY ROOM VISIT NOTE ---
ED Visit Note First contact with patient: 07:12 CHIEF COMPLAINT: Right shoulder injury HISTORY OF PRESENT ILLNESS: This 67-year-old white female patient XXXXX to the shoulder earlier today with immediate onset of pain. There is limitation of motion of the arm because of the pain. The patient did not hear a cracking the sound at the time of the injury. The pain is moderate, constant and increases with motion of the hand and arm. No previous significant shoulder disease or injury. REVIEW OF SYSTEM: HEENT: No dizziness, visual problems, hearing loss, or tinnitus. There is no difficulty swallowing and no oral lesions are present. PULMONARY: No cough, shortness of breath, sputum production or hemoptysis. CARDIOVASCULAR: No chest pain, palpitations, shortness of breath or peripheral edema. GASTROINTESTINAL: No diarrhea, constipation, nausea, vomiting, or abdominal pain. GENITOURINARY: No dysuria, frequency, urgency or nocturia. NEUROLOGIC: No weakness, muscle tenderness, epilepsy or history of neurological problems. MUSCULOSKELETAL: No history of joint tenderness/swelling. Positive history of arthritis and arthralgias. SKIN: No rashes or lesions. PSYCHIATRIC: Positive history of depression and anxiety. ENDOCRINE: No history of diabetes or abnormal hair growth. PMH: Significant for anxiety, depression, osteoarthritis, hypothyroidism, heart disease, hypertension. Previous surgeries: Right shoulder arthroscopy October 16, 2017, total knee arthroplasty, cholecystectomy, cataract surgery, appendectomy, tonsillectomy. SOCIAL HISTORY: Patient lives at home. Non-smoker, no excessive alcohol use. Retired. Current medications: Reviewed and filed in patient's chart. Allergies: NKDA Family history: Reviewed with the patient. Noncontributory. PHYSICAL EXAM: Vital Signs: Reviewed nurse's notes. Afebrile. General: Well-developed, well-nourished, elderly white female, in obvious discomfort. No acute distress. Sitting on the bed. Alert and oriented. Skin: Warm and dry with good turgor. No rashes or lesions. No ecchymosis or erythema. The patient is not diaphoretic. No abrasions. Musculoskeletal: The shoulder is not swollen or deformed on inspection. The range of motion is limited in all directions because of the pain. Passively she has forward flexion to 90 and abduction to 90. Internal rotation with her arm against her abdomen. External rotation to approximately 30 beyond neutral. Actively she has very limited forward flexion and abduction of only around 20-25. There is mild tenderness of the distal clavicle. No eccymosis seen. Full active range of motion of her wrist and elbow. No pain with palpation over the posterior rotator cuff musculature. She has global discomfort with palpation over the superior, anterior, and lateral aspect of the shoulder. Heart: Heart RRR. No MGR. Peripheral pulses are 2+. Lungs: Lungs are clear to auscultation. No crackles rhonchi or wheezing. Good air movement. The patient is able to take a deep breath. Neurologic: Gross sensation is intact across the right arm by soft touch. Peripheral pulses are 2+. EMERGENCY DEPARTMENT COURSE: An X-ray of the shoulder does not show any fractures, dislocations, or other acute abnormality. Postsurgical changes are seen. Films were reviewed by me and read by radiology. DIAGNOSIS: Right shoulder pain, likely rotator cuff tear DISCHARGE INSTRUCTIONS & TREATMENT: Patient was educated regarding today's findings. Conservative care measures were discussed. Rest the arm in her sling until the pain subsides. Apply ice to the shoulder intermittently and frequently over the next 72 hours. Percocet 5 mg every 6 hours if needed for pain. Follow-up with her orthopedist this week. Call on Monday for an appointment. Avoid any lifting with the right arm. Return to the ED for any other concerns. Problem List Medical Problems: (1) Anxiety Status: Chronic (2) Depression Status: Chronic (3) Depression Status: Chronic (4) Heart disease Status: Chronic (5) Osteoarthritis Status: Chronic (6) Spinal stenosis Status: Chronic (7) Vertigo Status: Chronic Surgical Problems: (1) H/O tubal ligation Status: Resolved (2) Hx of appendectomy Status: Resolved (3) Hx of cataract surgery Status: Resolved (4) Hx of cholecystectomy Status: Resolved (5) Hx of tonsillectomy Status: Resolved (6) Hx of total knee replacement Status: Resolved Current/Historical Medications Scheduled Acetaminophen Tab (Tylenol), 325 MG PO HS Levothyroxine Sodium (Levothyroxine Sodium), 1 TAB PO QAM Naproxen (Aleve), 220 MG PO HS Paroxetine (Paxil), 40 MG PO QAM Simvastatin (Zocor), 40 MG PO QPM [Vitamin D], 1 TAB PO QAM Scheduled PRN Hydroxyzine Pamoate (Vistaril), 1 CAP PO BID PRN for Anxiety Oxycodone/Acetaminophen 5MG/325MG (Percocet 5MG/325MG), 1-2 TABS PO Q6H PRN for Pain Allergies Coded Allergies: NO KNOWN DRUG ALLERGIES (Verified Allergy, Mild, ., 12/24/17) Nickel (Verified Allergy, Mild, RED AND SORE EARS WITH EARRINGS, 12/24/17) Vital Signs Date Time Temp Pulse Resp B/P (MAP) Pulse Ox O2 Delivery O2 Flow Rate FiO2 12/24/17 08:28 76 20 138/86 97 12/24/17 07:11 36.6 74 20 139/88 97 Medications Administered Medications (Trade) Dose Ordered Sig/Jessee Route Start Time Stop Time Status Last Admin Dose Admin Oxycodone/ Acetaminophen (Percocet 5-325mg Tab) 1 tab ONE ONCE PO 12/24/17 07:30 12/24/17 07:31 DC 12/24/17 08:03 1 TAB Departure Information Prescriptions Oxycodone/Acetaminophen 5MG/325MG (PERCOCET 5MG/325MG) Tab 1-2 TABS PO Q6H Y for Pain, #15 TAB For Initial Treatment Prov: Harish Orellana,P.A. 12/24/17 Referrals Gemini Benjamin, C.R.N.P. (PCP) Patient Instructions My [facility]
[2017-12-25] MEDS ORDERED: CHOL100010 PO (07:34)
== END 2017-12-24 08:29 | disposition home or self-care (01) ==
LOC: C.EDB 07:06
DX: M25.511 Pain in right shoulder (principal); W22.8XXA Striking against or struck by other objects, initial encounter; Y92.9 Unspecified place or not applicable; F41.9 Anxiety disorder, unspecified; F32.9 Major depressive disorder, single episode, unspecified; M19.90 Unspecified osteoarthritis, unspecified site; E03.9 Hypothyroidism, unspecified; I51.9 Heart disease, unspecified; M48.00 Spinal stenosis, site unspecified; Z79.899 Other long term (current) drug therapy; Z91.048 Other nonmedicinal substance allergy status

== ENCOUNTER → 2018-01-04 | Day surgery (SDC) | payer OTHER ==
[2017-12-25 07:35] VITALS: Ht 170.2 cm; Wt 98.6 kg
[~2018-01-04] VITALS: Ht 170.2 cm; Wt 98.6 kg
[~2018-01-04] MED LIST changes: +ACET-1693 PO; +BUPIVACAINE 0.25% 2.5MG/ML PF 10 ML VIAL ONE; +CHOL100010 PO; -DICL-201 PO; +LIDOCAINE HCL 1% 20 ML VIAL ONE; +NAPR1TAB9 PO; +OXYC-57 PO; -VITAMIN D PO
[2018-01-04 12:11] VITALS: TEMP 36.4
--- NOTE | 2018-01-04 13:56 | [facility] Post Operative Brief Note ---
Immediate Operative Summary Operative Date Jan 04, 2018. Pre-Operative Diagnosis Bilateral L5-S1 facet arthropathy with chronic low back pain. Post-Operative Diagnosis Same Procedure(s) Performed Bilateral L5-S1 Radio Frequency Denervations Surgeon Dr Christiano Ogden Motorboat Mechanic Inboard/Outboard Surgeon(s) None Estimated Blood Loss 0 Findings Consistent with Post-Op Diagnosis Specimens NA Drains None Anesthesia Type Local Complication(s) none Disposition Disposition:
--- NOTE | 2018-01-04 13:57 | Discharge Instructions ---
Discharge Instructions Date of Service Jan 04, 2018. Visit Reason for Visit: Inflammatory Spondylopathy, Lumbar Region Discharge Discharge Diagnosis / Problem: low back pain Discharge Goals Goal(s): Decrease discomfort, Improve function Activity Recommendations Activity Limitations: resume your previous activity Anesthesia . Post Anesthesia Instructions: If you have had General Anesthesia or IV Sedation: * Do not drive today. * Resume driving when surgeon permits. * Do not make important decisions or sign legal documents today. * Call surgeon for: 1. Temperature elevations greater than 101 degrees F. 2. Uncontrollable pain. 3. Excessive bleeding. 4. Persistent nausea and vomiting. 5. Medication intolerance (nausea, vomiting or rash). * For nausea and vomiting use only clear liquids such as: tea, soda, bouillon until nausea subsides, then gradually increase diet as tolerated. * If you have any concerns or questions, call your surgeon's office. If physician is unavailable and it is an emergency, call 911 or go to the nearest emergency room. . Diet Recommendations Recommended Home Diet: resume previous diet Procedures Procedures Performed: Bilateral L5-S1 Radio Frequency Denervations Pending Studies Studies pending at discharge: no Medical Emergencies . Who to Call and When: Medical Emergencies: If at any time you feel your situation is an emergency, please call 911 immediately. . Non-Emergent Contact Non-Emergency issues call your: Specialist . . "Provider Documentation" section prepared by Christiano Ogden. .
[2018-01-04 14:23] VITALS: BP 149/94; PULSE 58; O2SAT 97
--- NOTE | 2018-01-04 14:43 | OPERATIVE REPORT ---
DATE OF OPERATION: 01/04/2018 PREOPERATIVE DIAGNOSIS: Chronic low back pain, bilateral L5-S1 facet arthropathy. POSTOPERATIVE DIAGNOSIS: Chronic low back pain, bilateral L5-S1 facet arthropathy. PROCEDURE: Bilateral L5-S1 radiofrequency denervations. INDICATIONS: The patient is a 67-year-old white female that had underwent bilateral L5-S1 denervations back in 2016. She has done well up until a short time ago. She returns today for denervation to provide her with relief of pain that had returned. PHYSICAL EXAMINATION: A pleasant female, seated comfortably. She has point tenderness to palpation of lumbar facet area. No issues with extension, rotation. Sciatic notches were nontender. Normal lower extremity strength. Negative seated straight leg raises. CONSENT: Verbal and written consent was obtained from the patient. Risks and benefits were reviewed. Risks include but are not limited to epidural abscess, epidural hematoma, allergic reaction, dural puncture. The patient wishes to proceed. PROCEDURE: The patient was taken back to the special procedures room of [facility]. She was maintained in a prone position. Backside was cleansed with Betadine x3 and a dry sterile dressing was applied. Fluoroscope was used to identify the left L5 transverse process and the left sacral ala and the overlying skin was anesthetized with 1.5 mL of lidocaine 1% with a 25 gauge 1.5-inch needle at each site. A 22 gauge 10 cm Dunlow needle contacted the bony target. She had sensory stimulation-provoked pain to a level of less than 0.2 volts at both the L5 and sacral ala sites. Motor stimulation-provoked localized spasms nothing down the leg. She then underwent anesthetization with 1 mL lidocaine 1% at each site and then radiofrequency denervation x2, 80 degrees 100 seconds, first at L5, then the sacral ala. After the denervation, she underwent an injection with 1 mL of bupivacaine 0.25% at each site. Denervation was well-tolerated. The right L5 transverse process junction and the right sacral ala were then fluoroscopically identified. The overlying skin was anesthetized with 1.5 mL at each site with 25 gauge 1.5-inch needle. A 22 gauge 10 cm Dunlow needle contacted each bony target. She then underwent sensory stimulation to 0.2 volts at each site which reproduced familiar sensations into the back. Motor stimulation at each site did not provoke any motion of the leg, just localized discomfort and twitching. She then underwent anesthetization with 1 mL lidocaine 1% at each site and denervation 80 degrees 100 seconds x2 at each site and then anesthetization with 1 mL of bupivacaine 0.25% at each site. The procedure was well-tolerated. DISPOSITION: 1. The patient is taken out into the discharge recovery area where she will be discharged home once discharge criteria have been met. 2. Follow up in the [facility] office in 2-4 weeks. I attest to the content of the Intraoperative Record and any orders documented therein. Any exception s are noted below.
== END | disposition home or self-care (01) ==
LOC: X.SURG 11:39
PROVIDERS: ATTEND Physical Medicine & Rehabilitation
DX: M47.817 Spondylosis without myelopathy or radiculopathy, lumbosacral region (principal); M54.5 Low back pain; G89.29 Other chronic pain

== ENCOUNTER → 2018-04-19 | Outpatient (CLI) | payer OTHER ==
[~2018-04-19] MED LIST changes: -BUPIVACAINE 0.25% 2.5MG/ML PF 10 ML VIAL ONE; +DICL-201 PO; +DOXY100C76 PO; -LIDOCAINE HCL 1% 20 ML VIAL ONE
--- NOTE | 2018-04-19 11:14 | DIAGNOSTIC IMAGING REPORT ---
L UPPER EXT JOINT WITHOUT CLINICAL HISTORY: LEFT SHOULDER AC JOINT ARTHROPATHY pain TECHNIQUE: Multiaxial MRI acquisition COMPARISON STUDY: None FINDINGS: Signal characteristics the osseous structures are unremarkable. Findings of hypertrophic changes acromioclavicular joint with inferior osteophytic reaction. This creates considerable impingement upon the musculotendinous junction of the supraspinatus. Trace amount of subdeltoid fluid. Moderate matrix deterioration of the supraspinatus consistent with a component of tendinopathy. Mild degenerative irregularity of the superior to surface. No well-defined significant tear. The infraspinatus and subscapularis tendons are unremarkable. Biceps tendon is intact within the bicipital groove. Glenoid labrum shows minimal degenerative substance change with no well-defined acute tear. IMPRESSION: 1. Considerable hypertrophic change acromioclavicular joint. 2. This creates considerable impingement upon the supraspinatus musculotendinous insertion. 3. No evidence for full-thickness tear, although there is moderate associated tendinopathy with moderate superficial irregularity/fibrillation of the superior supraspinatus tendon surface. The above report was generated using voice recognition software. It may contain grammatical, syntax or spelling errors. Electronically signed by: Miguel Clayton M.D. 04/19/2018 11:12 AM Dictated Date/Time: 04/19/2018 11:05 AM
== END | disposition home or self-care (01) ==
LOC: C.MRI 10:14
PROVIDERS: ATTEND Orthopaedic Surgery
DX: M19.019 Primary osteoarthritis, unspecified shoulder (principal)

== ENCOUNTER → 2018-04-25 | Outpatient (CLI) | payer OTHER ==
[2018-04-25 10:02] LABS: HEMATOCRIT 44.5 % (37-47); HEMOGLOBIN 14.8 g/dL (12.0-16.0); MEAN CELL VOLUME 94.3 fL (80-100); MEAN CORPUSCULAR HEMOGLOBIN 31.4 pg (25-34); MEAN PLATELET VOLUME 10.2 fL (7.4-10.4); PLATELET COUNT 218 K/uL (130-400); RED CELL DISTRIBUTION WIDTH CV 13.4 % (11.5-14.5); RED CELL DISTRIBUTION WIDTH SD 46.6 fL (36.4-46.3); WHITE BLOOD COUNT 5.79 K/uL (4.8-10.8)
[2018-04-25 10:30] LABS: MEAN CORPUSCULAR HGB CONC 33.3 g/dl (32-36)
[2018-04-25 10:37] LABS: BLOOD UREA NITROGEN 16 mg/dl (7-18); CALCIUM 8.7 mg/dl (8.5-10.1); CARBON DIOXIDE 26 mmol/L (21-32); CREATININE 0.98 mg/dl (0.60-1.20); GLUCOSE 87 mg/dl (70-99); POTASSIUM 4.2 mmol/L (3.5-5.1); SODIUM 139 mmol/L (136-145)
== END | disposition home or self-care (01) ==
LOC: C.LAB1850 09:22
PROVIDERS: ATTEND Physician Assistant
DX: Z01.818 Encounter for other preprocedural examination (principal); M75.100 Unspecified rotator cuff tear or rupture of unspecified shoulder, not specified as traumatic

== ENCOUNTER → 2018-05-02 | Outpatient (CLI) | payer OTHER ==
[~2018-05-02] MED LIST changes: -ACET-1693 PO; -HYDR25CA PO; -NAPR1TAB9 PO; -OXYC-57 PO
== END | disposition home or self-care (01) ==
LOC: C.PATHSPEC 13:03
PROVIDERS: ATTEND Nurse Practitioner
DX: B07.9 Viral wart, unspecified (principal)